=== PATIENT | female | born 1950 | race Asian ===

== ENCOUNTER → 2016-12-08 | Outpatient (CLI) | payer OTHER | END | disposition home or self-care (01) | LOC: CFH 12:56 | PROVIDERS: ATTEND Family Medicine | DX: Z12.31 Encounter for screening mammogram for malignant neoplasm of breast (principal); Z85.3 Personal history of malignant neoplasm of breast; Z92.3 Personal history of irradiation | CPT/HCPCS: G0202 ==

== ENCOUNTER → 2017-02-03 | Outpatient (CLI) | payer OTHER | END | disposition home or self-care (01) | LOC: CFH 09:25 | PROVIDERS: ATTEND Family Medicine | DX: K21.9 Gastro-esophageal reflux disease without esophagitis (principal); K44.9 Diaphragmatic hernia without obstruction or gangrene | CPT/HCPCS: 74241 ==